=== PATIENT | male | born 1945 | race Caucasian/White ===

== ENCOUNTER 2020-08-03 11:18 | Outpatient (REF) | payer MEDICARE, SELFPAY ==
--- NOTE | 2020-08-03 12:58 | MHC.AU.HFU ---
Miscellaneous Note Date of Visit: 08/03/20 Summary: Patient arrived for audiological evaluation. Otoscopy revealed deepy impacted, hardened cerumen bilaterally that was completely occluding both ears. Patient is on blood thinning medications; therefore, I was unable to attempt cerumen removal today. Hearing test could not be performed. Recommendations: Referral to Ear, Nose, and Throat is recommended for cerumen removal, as well as to address his recent bouts of vertigo. Audiological evaluation is recommended after cerumen removal. Diagnosis Code(s): Primary Diagnosis: H61.23 Impacted Cerumen, Bilateral Signature: Provider: Gavin Pinto, CCC-A
== END 2020-08-03 11:19 | disposition home or self-care (01) ==
LOC: HO.SH 11:18
PROVIDERS: Visit Provider Physician Assistant Medical
DX: Z13.89 Encounter for screening for other disorder (principal)